=== PATIENT | female | born 1955 | race Caucasian/White ===

== ENCOUNTER 2019-07-25 19:30 | Emergency (ER) | payer SELFPAY ==
[2019-07-25 19:38] VITALS: BP 122/48
--- NOTE | 2019-07-25 20:07 | ER Document Report ---
ED Medical Screen (RME) - General Chief Complaint: Pain All Over Stated Complaint: TOTAL BODY PAIN Time Seen by Provider: 07/25/19 20:00 Mode of Arrival: Wheelchair Information source: Patient Notes: Patient presents complaining of generalized body pain that started yesterday. Patient reports nausea and diarrhea x5 episodes. Patient denies any vomiting urinary symptoms cough or cold symptoms. Patient does report feeling lightheaded and states that she is fallen against the bed without injury twice at home. Patient denies any chest pain symptoms. Patient poor historian. hx: Restless leg syndrome, hypothyroidism, GERD I have greeted and performed a rapid initial assessment of this patient. A comprehensive ED assessment and evaluation of the patient, analysis of test results and completion of the medical decision making process will be conducted by additional ED providers. - Related Data Allergies/Adverse Reactions: codeine Allergy (Verified 07/25/19 20:03) propoxyphene [From Darvon] Allergy (Verified 07/25/19 20:03) Physical Exam - Vital signs Vitals: Temp Pulse Resp BP Pulse Ox 98.9 F 85 20 122/48 L 94 07/25/19 19:37 07/25/19 19:37 07/25/19 19:37 07/25/19 19:37 07/25/19 19:37 - General General appearance: Alert Notes: Generalized body pain, poor eye contact - Cardiovascular Rhythm: Regular Heart sounds: S1 appreciated, S2 appreciated Course - Vital Signs Vital signs: Temp Pulse Resp BP Pulse Ox 98.9 F 85 20 122/48 L 94 07/25/19 19:37 07/25/19 19:37 07/25/19 19:37 07/25/19 19:37 07/25/19 19:37
--- NOTE | 2019-07-25 20:40 | RADIOLOGY REPORT (SQ) ---
EXAM DESCRIPTION: [facility]: XR CHEST 2 VIEWS Views: 2 CLINICAL HISTORY: 64 years Female, dizzy, body pain COMPARISON: None. FINDINGS: Lungs are hyperinflated, suggesting COPD. There is mild central interstitial prominence, but no focal acute infiltrate. No pneumothorax or pleural effusion. Cardiomediastinal silhouette is within normal limits. Bony structures are unremarkable for age. IMPRESSION: 1. Mild pulmonary vascular congestion. 2. No focal acute infiltrates
[2019-07-25 21:27] LABS: APPEARANCE,URINE CLEAR; BILIRUBIN,URINE NEGATIVE (NEGATIVE); COLOR,URINE YELLOW; GLUCOSE, URINE NEGATIVE (NEGATIVE); KETONES,URINE 20 mg/dL (NEGATIVE); PROTEIN,URINE 30 mg/dL (NEGATIVE); URINE SPECIFIC GRAVITY 1.021; UROBILINOGEN,URINE NEGATIVE mg/dL (<2.0)
[2019-07-25 21:30] LABS: HEMATOCRIT 38.4 % (36.0-47.0); HEMOGLOBIN 12.9 g/dL (12.0-15.5); MEAN CORPUSCULAR HGB CONC 33.5 g/dL (32.0-36.0); MEAN CORPUSCULAR VOLUME 90 fl (80-97); PLATELET COUNT 144 10^3/uL (150-450); RED BLOOD COUNT 4.29 10^6/uL (3.72-5.28); RED CELL DISTRIBUTION WIDTH 13.4 % (11.5-14.0); WHITE BLOOD COUNT 13.8 10^3/uL (4.0-10.5)
[2019-07-25 21:37] LABS: ALBUMIN 3.8 g/dL (3.5-5.0); ALKALINE PHOSPHATASE 70 U/L (38-126); ANION GAP 9 (5-19); ASPARTATE AMINO TRANSFERASE 25 U/L (14-36); BILIRUBIN,DIRECT 0.2 mg/dL (0.0-0.4); BILIRUBIN,TOTAL 0.8 mg/dL (0.2-1.3); BLOOD UREA NITROGEN 13 mg/dL (7-20); CARBON DIOXIDE 27 mmol/L (22-30); CHLORIDE 99 mmol/L (98-107); CREATINE KINASE 55 U/L (30-135); GLUCOSE 101 mg/dL (75-110); POTASSIUM 3.7 mmol/L (3.6-5.0); TOTAL PROTEIN 6.8 g/dL (6.3-8.2)
[2019-07-25 21:50] LABS: ABSOLUTE LYMPHOCYTES# (MANUAL) 1.2 10^3/uL (0.5-4.7); ABSOLUTE MONOCYTES # (MANUAL) 0.6 10^3/uL (0.1-1.4); BASOPHILS % (MANUAL) 0 % (0-2); EOSINOPHILS % (MANUAL) 0 % (0-6); LYMPHOCYTES % (MANUAL) 8 % (13-45); MONOCYTES % (MANUAL) 4 % (3-13); RBC MORPHOLOGY COMMENT NORMO-CYTIC/CHROMIC; SEGMENTED NEUTROPHILS % (MAN) 87 % (42-78); TOTAL CELLS COUNTED 100
[2019-07-25 21:51] LABS: PLATELET COMMENT ADEQUATE
--- NOTE | 2019-07-26 20:18 | EKG REPORT ---
SEVERITY:- ABNORMAL ECG - SINUS RHYTHM LEFT ANTERIOR FASCICULAR BLOCK LEFT VENTRICULAR HYPERTROPHY : Confirmed by: Nereyda Luis MD 26-Jul-2019 20:16:49
== END 2019-07-25 23:14 | disposition left against medical advice (07) ==
LOC: ER 19:30
DX: M79.10 Myalgia, unspecified site (principal); R11.0 Nausea; R19.7 Diarrhea, unspecified; E03.9 Hypothyroidism, unspecified; G25.81 Restless legs syndrome; Z88.6 Allergy status to analgesic agent
CPT/HCPCS: 36415; 71046; 80053; 81001; 82550; 83690; 83735; 84484; 85025; 87086; 93005; 93010

== ENCOUNTER 2019-11-06 21:06 | Emergency (ER) | payer MEDICARE ==
[2019-11-06 22:03] VITALS: BP 134/72
== END 2019-11-07 02:21 | disposition left against medical advice (07) ==
LOC: ER 21:06
DX: Z53.21 Procedure and treatment not carried out due to patient leaving prior to being seen by health care provider (principal)